=== PATIENT | male | born 1965 | race African-American/Black ===

== ENCOUNTER 2023-05-02 22:46 | Emergency (ER) | payer OTHER ==
[~2023-05-02] VITALS: Ht 180.3 cm; Wt 77.6 kg
[2023-05-02 22:50] VITALS: TEMP 98.2; O2SAT 100
[2023-05-02] MEDS ORDERED: HYDROCODONE/ACETAMINOPHEN 5/325MG TABLET PO ONE (23:45)
[2023-05-02] MEDS ORDERED: LIDOCAINE HCL/PF 1% 10 MG/ML 5ML VIAL INFIL ONE (23:45)
[2023-05-03] MEDS ORDERED: T3 PO (01:06)
[2023-05-03] MEDS ORDERED: IBUP-2029 MT (01:06)
[2023-05-03] MEDS ORDERED: CEPH500T MT (01:06)
[2023-05-03] MEDS ORDERED: HYDROCODONE/ACETAMINOPHEN 5/325MG TABLET PO ONE (01:15)
[2023-05-03] MEDS ORDERED: IBUPROFEN 600MG TABLET PO ONE (01:15)
[2023-05-03 01:33] VITALS: BP 109/72; PULSE 80; RESP 18
== END 2023-05-03 01:35 | disposition home or self-care (01) ==
LOC: ER 22:46
DX: M79.644 Pain in right finger(s) (principal); Z79.899 Other long term (current) drug therapy
CPT/HCPCS: 99284; 73140; 12001; J3490